=== PATIENT | male | born 1975 | race African-American/Black ===

== ENCOUNTER 2020-08-11 22:07 | Emergency (ER) | payer OTHER ==
[2020-08-11] MEDS ORDERED: HYDROcodone/Acetaminophen 5/325 mg Tablet ONE (22:40)
== END 2020-08-11 22:53 | disposition home or self-care (01) ==
LOC: NAV ERS 22:07
DX: S39.012A Strain of muscle, fascia and tendon of lower back, initial encounter (principal); I10 Essential (primary) hypertension; Z87.891 Personal history of nicotine dependence; Z79.899 Other long term (current) drug therapy; X58.XXXA Exposure to other specified factors, initial encounter
CPT/HCPCS: 99283